=== PATIENT | female | born 1945 | race Caucasian/White ===

== ENCOUNTER 2019-06-19 10:18 | Outpatient (CLI) | payer MEDICARE ==
--- NOTE | 2019-06-19 11:15 | ULT ---
Exam: Pelvic ultrasound HISTORY: Pain. Urinary urgency. Complete hysterectomy TECHNIQUE: Transabdominal imaging of the pelvis is performed FINDINGS: No solid masses or free fluid in the pelvis. Visualized urinary bladder has a normal appearance. Sono grapher reports bilateral ureteral jets are visualized IMPRESSION: Unremarkable ultrasound of the pelvis. No acute abnormality.
--- NOTE | 2019-06-19 14:10 | ULT ---
ULTRASOUND ABDOMEN: 06/19/19 HISTORY: Urination urgency and abdominal pain. FINDINGS: The liver, spleen, gallbladder, and visualized portions of the pancreas, aorta and IVC appear normal. The common duct measures 5 mm in diameter. A prominent left renal pelvis is present. No hydronephros is seen on either side. Echogenic foci in the right kidney measuring up to 8 mm in length are present . Nonobstructing calculi. No free fluid is seen. IMPRESSION: 1. No evidence of cholelithiasis. 2. Probable nonobstructing right renal calculi. POS: [facility]
== END 2019-06-19 10:19 | disposition home or self-care (01) ==
LOC: SCSULT 10:18
PROVIDERS: ATTEND Family Medicine
DX: R39.15 Urgency of urination (principal); R10.2 Pelvic and perineal pain
CPT/HCPCS: 76856; 93975

== ENCOUNTER 2019-06-19 13:21 | Outpatient (CLI) | payer MEDICARE ==
--- NOTE | 2019-06-19 15:27 | BD ---
DEXA BONE DENSITY STUDY: Date: 06/19/2019 PROVIDED CLINICAL HISTORY: : Osteoporosis. FINDINGS: Lumbar Spine: BMD (g/cm2) L1 0.960 T-Score: -0.3 L2 1.141 T-Score: 1.0 L3 1.272 T-Score: 1.7 L4 1.509 T-Score: 4.1 Total 1.219 T-Score: 1.6 Left Femoral Neck: 0.640 T-Score: -1.9 Total Femur: 0.814 T-Score: -1.1 10 YEAR FRACTURE RISK: Major osteoporotic fracture: 12% Hip fracture: 2.3% Lumbar spine values are likely falsely elevated due to degenerative sclerosis. IMPRESSION: Calculated bone mineral density in the left femoral neck meets WHO criteria for osteopenia and places the patient at increased risk for fracture. POS: [facility]
== END 2019-06-19 13:22 | disposition home or self-care (01) ==
LOC: BICMAMMO 13:21
PROVIDERS: ATTEND Family Medicine
DX: Z13.820 Encounter for screening for osteoporosis (principal); M85.852 Other specified disorders of bone density and structure, left thigh
CPT/HCPCS: 77080

== ENCOUNTER 2019-07-23 14:50 | Outpatient (CLI) | payer MEDICARE ==
--- NOTE | 2019-07-28 16:06 | MMO ---
Bilateral MAMMO Bilat Screen [facility]. CLINICAL HISTORY: Patient is 74 years old and is seen for screening. The patient has no family history of breast cancer. The patient has no personal history of cancer. VIEWS: The views performed were: bilateral craniocaudal with tomosynthesis and bilateral mediolateral oblique with tomosynthesis. FILMS COMPARED: The present examination has been compared to prior imaging studies performed at This study has been interpreted with the assistance of computer-aided detection. MAMMOGRAM FINDINGS: There are scattered fibroglandular densities. There are stable benign appearing calcifications seen in both breasts. There are also vascular calcifications. There are no suspicious masses, suspicious calcifications, or new areas of architectural distortion. IMPRESSION: THERE IS NO MAMMOGRAPHIC EVIDENCE OF MALIGNANCY. A ROUTINE FOLLOW-UP MAMMOGRAM IN 1 YEAR IS RECOMMENDED. THE RESULTS OF THIS EXAM WERE SENT TO THE PATIENT. ACR BI-RADS Category 2 - Benign finding MAMMOGRAPHY NOTE: 1. A negative mammogram report should not delay a biopsy if a dominant of clinically suspicious mass is present. 2. Approximately 10% to 15% of breast cancers are not detected by mammography. 3. Adenosis and dense breasts may obscure an underlying neoplasm. Reported by: PACO POOL MD Electonically Signed: [id number]
== END 2019-07-23 14:51 | disposition home or self-care (01) ==
LOC: BICMAMMO 14:50
PROVIDERS: ATTEND Family Medicine
DX: Z12.31 Encounter for screening mammogram for malignant neoplasm of breast (principal)
CPT/HCPCS: 77063; 77067

== ENCOUNTER 2020-03-09 08:44 | Outpatient (CLI) | payer MEDICARE ==
--- NOTE | 2020-03-09 09:52 | ULT ---
Renal ultrasound: 03/09/2020 COMPARISON: 06/19/2019 History: Recurrent urinary tract infections TECHNIQUE: Multiplanar grayscale sonographic imaging of the kidneys and urinary bladder obtained. FINDINGS: Right kidney measures 9.8 x 4.4 x 4.3 cm with a cortical thickness of approximately 1.3 cm. No right renal mass or hydronephrosis. There is a 5-6 mm echogenic focus within the midpole of the right kidney which may represent a small stone. The left kidney measures 11.75 5.7 x 6.0 cm and demonstrates no evidence for stone, hydronephrosis, o r mass. The prevoid urinary bladder volume is 88 cc and the postvoid urinary bladder volume is 104 cc. IMPRESSION: Renal ultrasound as above.
== END 2020-03-09 08:45 | disposition home or self-care (01) ==
LOC: BICULT 08:44
PROVIDERS: ATTEND Urology
DX: N39.0 Urinary tract infection, site not specified (principal)
CPT/HCPCS: 76770

== ENCOUNTER 2020-04-22 15:02 | Outpatient (CLI) | payer MEDICARE | END 2020-04-22 15:03 | disposition home or self-care (01) | LOC: BICCT 15:02 | PROVIDERS: ATTEND Urology | DX: N39.0 Urinary tract infection, site not specified (principal); N20.0 Calculus of kidney; K57.30 Diverticulosis of large intestine without perforation or abscess without bleeding | CPT/HCPCS: 74176; 82565 ==

== ENCOUNTER 2020-07-14 07:21 | Observation (INO) | payer MEDICARE ==
[2020-07-14 07:59] LABS: #Basophils 0.1 thou/uL (0.0-0.2); #Eosinphils 0.2 thou/uL (0.0-0.7); #Lymphocytes 1.8 thou/uL (1.20-3.40); #Monocytes 1.5 thou/uL (0.11-0.59); #Neutrophils 12.2 thou/uL (1.40-6.50); %Basophils 0.6 % (0.0-1.0); %Eosinophils 1.2 % (0.0-10.0); %Lymphocytes 11.4 % (21.0-51.0); %Monocytes 9.6 % (0.0-10.0); %Neutrophils 77.1 % (42.0-75.0); Hemoglobin 13.6 g/dL (12.0-16.0); Mean Corpuscular HGB CONC 33.3 g/dL (32.0-36.0); Mean Corpuscular Hemoglobin 31.8 pg (27.0-31.0); Mean Corpuscular Volume 95.5 fL (78.0-98.0); Mean Platelet Volume 8.3 fL (7.4-10.4); Platelet Count 256 thou/uL (130-400); RBC Distribution Width 11.8 % (11.5-14.5); Red Blood Cell (RBC) Count 4.28 mill/uL (4.20-5.40); White Blood Cell (WBC) Count 15.8 thou/uL (4.8-10.8)
[2020-07-14] MEDS ORDERED: Ondansetron PF 4 MG/2 ML Vial ONE ×2 (08:05→18:39)
[2020-07-14] MEDS ORDERED: cefTRIAXone\\ROCEPHIN 1 GM VIAL ONE (08:05)
[2020-07-14] MEDS ORDERED: Morphine 2 MG/ML VIAL ONE (08:05)
[2020-07-14 08:19] LABS: Anion Gap 13 mmol/L (10-20); BUN (Urea Nitrogen) 12 mg/dL (9.8-20.1); Calc. Creatinine Clearance 0 mL/min (70-130); Calcium 9.1 mg/dL (7.8-10.44); Carbon Dioxide 26 mmol/L (23-31); Chloride 105 mmol/L (98-107); Glucose 164 mg/dL (83-110); Sodium 141 mmol/L (136-145)
[2020-07-14 08:41] LABS: Bacteria/HPF 4+ HPF (None Seen); Bilirubin Negative (Negative); Blood, Urine 2+ (Negative); Clarity Turbid (Clear); Glucose, Urine (Dipstick) Normal (Negative); Ketone, Urine 20 mg/dL (Negative); Leukocyte 500 Leu/uL (Negative); Nitrite Negative (Negative); Protein, Urine (Dipstick) 50 mg/dL (Neg-Trace); RBC/HPF 21-50 HPF (0-3); Specific Gravity, Urine 1.014 (1.002-1.036); Squamous Epithelial 0-3 HPF (0-3); Urobilinogen Normal mg/dL (Less than 2); WBC/HPF Greater than 50 HPF (0-3)
[2020-07-14 09:02] LABS: ALT (SGPT) 16 U/L (8-55); AST (SGOT) 13 U/L (5-34); Albumin 3.5 g/dL (3.4-4.8); Alkaline Phosphatase 86 U/L (40-110); Anion Gap 13 mmol/L (10-20); BUN (Urea Nitrogen) 12 mg/dL (9.8-20.1); Calc. Creatinine Clearance 0 mL/min (70-130); Calcium 8.5 mg/dL (7.8-10.44); Carbon Dioxide 24 mmol/L (23-31); Chloride 106 mmol/L (98-107); Globulin 2.6 g/dL (2.4-3.5); Glucose 152 mg/dL (83-110); Lipase Less than 4 U/L (8-78); Protein, Total 6.1 g/dL (5.8-8.1); Sodium 140 mmol/L (136-145)
[2020-07-14 09:06] LABS: Potassium 2.8 mmol/L (3.5-5.1)
[2020-07-14] MEDS ORDERED: Morphine 2 MG/ML VIAL SLOW IVP PRN (10:42)
[2020-07-14] MEDS ORDERED: Electrolyte Replacement Protocol 1 EACH FS PRN (10:45)
[2020-07-14 11:32] LABS: SARS-CoV-2 NAA Rapid Test Not Detected (NotDetected)
[2020-07-14] MEDS ORDERED: Cefepime 2 GM in Sodium Chloride 0.9% 100 ML IVPB SCH (12:00)
[2020-07-14] MEDS: Sodium Chloride 0.9% 1,000 ML IV SCH (17:07)
[2020-07-14 17:17] LABS: Potassium 2.8 mmol/L (3.5-5.1)
[2020-07-14] MEDS ORDERED: Iothalamate Meglumine 60% 50 ML VIAL FS ONE (17:55)
[2020-07-14] MEDS ORDERED: Fentanyl 100 MCG/2 ML VIAL ONE (18:32)
[2020-07-14] MEDS ORDERED: Dexamethasone 20 MG/5 ML VIAL ONE (18:39)
[2020-07-14] MEDS ORDERED: PROPOFOL 200 MG/20 ML VIAL ONE (18:39)
[2020-07-14] MEDS ORDERED: Lidocaine 1% PF 5 ML VIAL ONE (18:39)
[2020-07-14] MEDS: Cefepime 2 GM in Sodium Chloride 0.9% 100 ML IVPB SCH (20:46)
[2020-07-14 21:20] VITALS: BMI 27.2
[2020-07-15] MEDS: Potassium Chloride 40 MEQ in Sodium Chloride 0.9% 250 ML 250 ML IVPB SCH ×2 (00:45→07:05)
[2020-07-15] MEDS: Sodium Chloride 0.9% 1,000 ML IV SCH (00:51)
[2020-07-15 04:32] LABS: #Monocytes 0.2 thou/uL (0.11-0.59); #Neutrophils 6.7 thou/uL (1.40-6.50); %Basophils 0.2 % (0.0-1.0); %Eosinophils 0.1 % (0.0-10.0); %Lymphocytes 12.9 % (21.0-51.0); %Monocytes 2.2 % (0.0-10.0); %Neutrophils 84.6 % (42.0-75.0); Hemoglobin 12.2 g/dL (12.0-16.0); Mean Corpuscular HGB CONC 33.2 g/dL (32.0-36.0); Mean Corpuscular Hemoglobin 31.9 pg (27.0-31.0); Mean Corpuscular Volume 95.9 fL (78.0-98.0); Mean Platelet Volume 8.4 fL (7.4-10.4); Platelet Count 257 thou/uL (130-400); RBC Distribution Width 11.9 % (11.5-14.5); Red Blood Cell (RBC) Count 3.83 mill/uL (4.20-5.40); White Blood Cell (WBC) Count 7.9 thou/uL (4.8-10.8)
[2020-07-15 05:02] LABS: Anion Gap 12 mmol/L (10-20); BUN (Urea Nitrogen) 16 mg/dL (9.8-20.1); Calc. Creatinine Clearance 75 mL/min (70-130); Calcium 8.9 mg/dL (7.8-10.44); Carbon Dioxide 28 mmol/L (23-31); Chloride 109 mmol/L (98-107); Glucose 223 mg/dL (83-110); Magnesium 1.8 mg/dL (1.6-2.6); Potassium 3.7 mmol/L (3.5-5.1); Sodium 145 mmol/L (136-145)
[2020-07-15] MEDS: Cefepime 2 GM in Sodium Chloride 0.9% 100 ML IVPB SCH (06:08)
[2020-07-15] MEDS ORDERED: Magnesium 2 GM/50 ML 2 GM in Premix Bag 1 BAG IVPB SCH (08:15)
[2020-07-15 08:48] VITALS: BP 144/65; TEMP 97.4
[2020-07-15] MEDS ORDERED: Enoxaparin Sodium 40 MG/0.4 ML SYRINGE SC SCH (09:00)
[2020-07-15 09:44] LABS: Hemoglobin A1c 5.4 % (4.0-6.0)
== END 2020-07-15 13:36 | disposition home or self-care (01) ==
LOC: ERS 07:21 → ERHOLD 10:01 → ONC 14:11
PROVIDERS: ADMIT Internal Medicine; ATTEND Internal Medicine
PROC: 0T778DZ Dilation of Left Ureter with Intraluminal Device, Via Natural or Artificial Opening Endoscopic (ICD-10-PCS; principal; 2020-07-14)
DX: N13.6 Pyonephrosis (principal); B96.20 Unspecified Escherichia coli [E. coli] as the cause of diseases classified elsewhere; E87.6 Hypokalemia; K57.30 Diverticulosis of large intestine without perforation or abscess without bleeding; M85.80 Other specified disorders of bone density and structure, unspecified site; E78.5 Hyperlipidemia, unspecified; E78.00 Pure hypercholesterolemia, unspecified; Z86.16 Personal history of COVID-19; Z79.82 Long term (current) use of aspirin; Z79.899 Other long term (current) drug therapy; Z88.1 Allergy status to other antibiotic agents; Z88.6 Allergy status to analgesic agent; Z88.8 Allergy status to other drugs, medicaments and biological substances; Z20.822 Contact with and (suspected) exposure to COVID-19
CPT/HCPCS: 0240U; 52332; 74176; 74420; 80048 ×2; 80053; 83036; 83605; 83690; 83735; 84132; 85025 ×2; 87040; 87077; 87086; 87149 ×2; 87186; 96365; 96375; 99285; J2270; Q9961; 36415; 81003; 81015; 96372; 96376; C2617; G0378; J0692; J0696; J1100; J1650; J2405; J2704; J3010; J3480; J3490; J7050

== ENCOUNTER 2020-07-25 10:05 | Outpatient (CLI) | payer MEDICARE | END 2020-07-25 10:06 | disposition home or self-care (01) | LOC: BICMAMMO 10:05 | PROVIDERS: ATTEND Family Medicine | DX: Z12.31 Encounter for screening mammogram for malignant neoplasm of breast (principal) | CPT/HCPCS: 77063; 77067 ==

== ENCOUNTER 2020-08-08 12:05 | Outpatient (CLI) | payer MEDICARE ==
[2020-08-08 14:07] LABS: Hemoglobin 14.1 g/dL (12.0-15.5); Mean Corpuscular HGB CONC 32.4 g/dL (32.0-36.0); Mean Corpuscular Hemoglobin 30.3 pg (27.0-33.0); Mean Corpuscular Volume 93.3 fl (81.6-98.3); Mean Platelet Volume 10.8 fl (7.4-10.4); Platelet Count 268 10x3/uL (150-450); RBC Distribution Width 12.9 % (11.5-14.5); Red Blood Cell (RBC) Count 4.66 10x6/uL (3.90-5.03); White Blood Cell (WBC) Count 7.6 10x3/uL (3.5-10.5)
[2020-08-08 14:08] LABS: INR-International Normal Ratio 0.9; PTT 24.5 sec (22.0-33.0); Prothrombin Time 10.5 sec (9.5-12.1)
[2020-08-08 16:01] LABS: Anion Gap 11 mmol/L (10-20); BUN (Urea Nitrogen) 14 mg/dL (9.8-20.1); Calc. Creatinine Clearance 0 mL/min (70-130); Carbon Dioxide 29 mmol/L (23-31); Chloride 106 mmol/L (98-107); Glucose 96 mg/dL (83-110); Potassium 4.2 mmol/L (3.5-5.1); Sodium 142 mmol/L (136-145)
[2020-08-08 16:03] LABS: Bilirubin Neg (Negative); Blood, Urine 250 (Negative); Clarity Clear (Clear); Glucose, Urine (Dipstick) Normal (Negative); Ketone, Urine Negative (Negative); Leukocyte 500 (Negative); Nitrite Negative (Negative); Protein, Urine (Dipstick) 100 mg/dl (Neg-Trace); Specific Gravity, Urine 1.015 (1.002-1.036); Urobilinogen Normal mg/dL (Less than 2); pH, Urine 6.5 (5.0-9.0)
[2020-08-08 16:58] LABS: Squamous Epithelial 0-3 HPF (0-3); WBC/HPF 0-3 HPF (0-3)
== END 2020-08-08 12:06 | disposition home or self-care (01) ==
LOC: LABBT 12:05
PROVIDERS: ATTEND Urology
DX: Z01.818 Encounter for other preprocedural examination (principal); N20.0 Calculus of kidney; N39.0 Urinary tract infection, site not specified
CPT/HCPCS: 80048; 81001; 85027; 85610; 85730; 87077; 87086; 93005; 93010

== ENCOUNTER 2020-08-11 05:41 | Day surgery (SDC) | payer MEDICARE ==
[2020-08-10 10:15] VITALS: BMI 26.8
[2020-08-11] MEDS ORDERED: Sodium Chloride 0.9% 100 ML ONE (06:01)
[2020-08-11] MEDS ORDERED: cefTRIAXone\\ROCEPHIN 1 GM VIAL ONE (06:01)
[2020-08-11] MEDS ORDERED: B & O ONE (07:24)
[2020-08-11] MEDS ORDERED: Iothalamate Meglumine 60% 50 ML VIAL FS ONE (07:24)
[2020-08-11] MEDS ORDERED: Fentanyl 100 MCG/2 ML VIAL ONE (07:34)
[2020-08-11] MEDS ORDERED: ePHEDrine Sulfate 50 MG/10 ML VIAL ONE (07:37)
[2020-08-11] MEDS ORDERED: PROPOFOL 200 MG/20 ML VIAL ONE (07:37)
[2020-08-11] MEDS ORDERED: Ondansetron PF 4 MG/2 ML Vial ONE (07:37)
[2020-08-11] MEDS ORDERED: Dexamethasone 20 MG/5 ML VIAL ONE (07:37)
[2020-08-11] MEDS ORDERED: hydrALAZINE 20 MG/ML VIAL ONE (09:12)
== END 2020-08-11 10:30 | disposition home or self-care (01) ==
LOC: SDC 05:41
PROVIDERS: ATTEND Urology
PROC: 0TC78ZZ Extirpation of Matter from Left Ureter, Via Natural or Artificial Opening Endoscopic (ICD-10-PCS; principal; 2020-08-11)
PROC: 0TC38ZZ Extirpation of Matter from Right Kidney Pelvis, Via Natural or Artificial Opening Endoscopic (ICD-10-PCS; 2020-08-11)
PROC: 0T788DZ Dilation of Bilateral Ureters with Intraluminal Device, Via Natural or Artificial Opening Endoscopic (ICD-10-PCS; 2020-08-11)
DX: N20.2 Calculus of kidney with calculus of ureter (principal); Z87.440 Personal history of urinary (tract) infections; Z79.82 Long term (current) use of aspirin; Z79.899 Other long term (current) drug therapy; Z88.1 Allergy status to other antibiotic agents; Z88.6 Allergy status to analgesic agent; Z88.8 Allergy status to other drugs, medicaments and biological substances
CPT/HCPCS: 52332; 52352; 52356; 74420; 82365; 88300; Q9961; C2617; J0360; J0696; J1100; J2405; J2704; J3010; J3490

== ENCOUNTER 2021-02-02 13:58 | Outpatient (CLI) | payer MEDICARE | END 2021-02-02 13:59 | disposition home or self-care (01) | LOC: BICULT 13:58 | PROVIDERS: ATTEND Urology | DX: N13.30 Unspecified hydronephrosis (principal) | CPT/HCPCS: 76770 ==

== ENCOUNTER 2021-07-26 09:52 | Outpatient (CLI) | payer MEDICARE | END 2021-07-26 09:53 | disposition home or self-care (01) | LOC: BICMAMMO 09:52 | PROVIDERS: ATTEND Family Medicine | DX: Z12.31 Encounter for screening mammogram for malignant neoplasm of breast (principal); Z13.820 Encounter for screening for osteoporosis; M85.851 Other specified disorders of bone density and structure, right thigh; M85.852 Other specified disorders of bone density and structure, left thigh; Z80.3 Family history of malignant neoplasm of breast | CPT/HCPCS: 77063; 77067; 77080 ==

== ENCOUNTER 2022-09-08 11:36 | Emergency (ER) | payer MEDICARE ==
[2022-09-08] MEDS ORDERED: Iopamidol-370 76% 500 ML MDV (1 ML CHARGE) ONE (11:49)
[2022-09-08] MEDS ORDERED: predniSONE 20 MG TAB ONE (12:08)
[2022-09-08] MEDS ORDERED: Albuterol 2.5 MG/0.5 ML NEB ONE (12:08)
[2022-09-08] MEDS ORDERED: Ipratropium Bromide 2.5 ml Neb ONE (12:08)
[2022-09-08 12:36] LABS: #Basophils 0.1 thou/uL (0.0-0.2); #Eosinphils 0.3 thou/uL (0.0-0.7); #Monocytes 1.3 thou/uL (0.11-0.59); #Neutrophils 5.9 thou/uL (1.40-6.50); %Basophils 0.6 % (0.0-1.0); %Lymphocytes 29.7 % (21.0-51.0); %Monocytes 12.2 % (0.0-10.0); %Neutrophils 54.2 % (42.0-75.0); Hemoglobin 14.6 g/dL (12.0-16.0); Mean Corpuscular HGB CONC 34.1 g/dL (32.0-36.0); Mean Corpuscular Hemoglobin 32.1 pg (27.0-31.0); Mean Corpuscular Volume 94.1 fl (78.0-98.0); Mean Platelet Volume 10.4 fL (7.4-10.4); Platelet Count 227 10x3/uL (130-400); RBC Distribution Width 12.9 % (11.5-14.5); Red Blood Cell (RBC) Count 4.55 mill/uL (4.20-5.40)
[2022-09-08 13:06] LABS: ALT (SGPT) 20 U/L (8-55); AST (SGOT) 18 U/L (5-34); Albumin 4.3 g/dL (3.4-4.8); Alkaline Phosphatase 83 U/L (40-110); Anion Gap 12 mmol/L (10-20); BUN (Urea Nitrogen) 9 mg/dL (9.8-20.1); Bilirubin, Total 0.7 mg/dL (0.2-1.2); Calc. Creatinine Clearance 0 mL/min (70-130); Calcium 9.2 mg/dL (7.8-10.44); Carbon Dioxide 27 mmol/L (23-31); Chloride 105 mmol/L (98-107); Estimated GFR 89; Globulin 2.3 g/dL (2.4-3.5); Glucose 108 mg/dL (83-110); Lipase 8 U/L (8-78); Potassium 3.6 mmol/L (3.5-5.1); Protein, Total 6.6 g/dL (5.8-8.1); Sodium 140 mmol/L (136-145)
[2022-09-08 13:44] LABS: SARS-CoV-2 NAA Rapid Test DETECTED (NotDetected)
== END 2022-09-08 14:40 | disposition home or self-care (01) ==
LOC: ERS 11:36
DX: U07.1 COVID-19 (principal); E78.5 Hyperlipidemia, unspecified; Z79.82 Long term (current) use of aspirin; Z79.899 Other long term (current) drug therapy
CPT/HCPCS: 0240U; 71046; 71275; 80053; 83690; 83880; 84484; 85025; 93005; 94760; 36415; J7512; J7611; Q9967

== ENCOUNTER 2023-03-18 08:34 | Outpatient (CLI) | payer MEDICARE | END 2023-03-18 08:35 | disposition home or self-care (01) | LOC: BICMAMMO 08:34 | PROVIDERS: ATTEND Internal Medicine Endocrinology, Diabetes & Metabolism | DX: Z13.820 Encounter for screening for osteoporosis (principal); E21.2 Other hyperparathyroidism; M85.851 Other specified disorders of bone density and structure, right thigh; M85.852 Other specified disorders of bone density and structure, left thigh | CPT/HCPCS: 77080 ==

== ENCOUNTER 2023-08-08 12:10 | Outpatient (CLI) | payer MEDICARE | END 2023-08-08 12:11 | disposition home or self-care (01) | LOC: BICMAMMO 12:10 | PROVIDERS: ATTEND Family Medicine | DX: Z12.31 Encounter for screening mammogram for malignant neoplasm of breast (principal); Z80.3 Family history of malignant neoplasm of breast | CPT/HCPCS: 77063; 77067 ==

== ENCOUNTER 2024-09-09 03:08 | Emergency (ER) | payer MEDICARE ==
[2024-09-09 05:50] LABS: ALT (SGPT) 25 U/L (Less than 34); AST (SGOT) 26 U/L (11-34); Albumin 3.4 g/dL (3.1-4.5); Alkaline Phosphatase 75 U/L (40-110); Anion Gap 12 mmol/L (10-20); BUN (Urea Nitrogen) 18 mg/dL (9.8-20.1); Bilirubin, Total 0.5 mg/dL (0.3-1.2); Calc. Creatinine Clearance 0 mL/min (70-130); Calcium 8.8 mg/dL (7.8-10.44); Carbon Dioxide 27 mmol/L (23-31); Chloride 109 mmol/L (98-107); Globulin 2.3 g/dL (2.4-3.5); Glucose 134 mg/dL (83-110); INR-International Normal Ratio 1.1; PTT 27.1 sec (22.9-36.1); Potassium 3.6 mmol/L (3.5-5.1); Prothrombin Time 13.9 sec (12.0-14.7); Sodium 144 mmol/L (136-145)
[2024-09-09 08:35] LABS: #Basophils 0.04 10x3/uL (0.0-0.2); #Eosinophils 0.56 10x3/uL (0.0-0.7); #Monocytes 0.86 10x3/uL (0.11-0.59); #Neutrophils 7.77 10x3/uL (1.40-6.50); %Basophils 0.4 % (0.0-1.0); %Eosinophils 5.0 % (0.0-10.0); %Lymphocytes 17.6 % (21.0-51.0); %Monocytes 7.7 % (0.0-10.0); %Neutrophils 69.0 % (42.0-75.0); Hematocrit 36.7 % (36.0-47.0); Hemoglobin 12.0 g/dL (12.0-16.0); Mean Corpuscular Hemoglobin 32.0 pg (27.0-31.0); Mean Corpuscular Volume 97.9 fL (78.0-98.0); Platelet Count 218 10x3/uL (130-400); Red Blood Cell (RBC) Count 3.75 mill/uL (4.20-5.40); White Blood Cell (WBC) Count 11.24 10x3/uL (4.8-10.8)
[2024-09-09] MEDS ORDERED: Iopamidol-370 76% 500 ML MDV (1 ML CHARGE) ONE (11:10)
== END 2024-09-09 07:25 | disposition home or self-care (01) ==
LOC: ERS 03:08
DX: K62.5 Hemorrhage of anus and rectum (principal); K57.90 Diverticulosis of intestine, part unspecified, without perforation or abscess without bleeding
CPT/HCPCS: 74174; 80053; 85025; 85610; 85730; 86850; 86900; 86901; 99284

== ENCOUNTER 2024-09-16 02:58 | Inpatient (IN) | payer MEDICARE ==
[2024-09-16] MEDS ORDERED: Pantoprazole 40 MG VIAL ONE (03:50)
[2024-09-16 04:06] LABS: #Basophils Less than 0.03 10x3/uL (0.0-0.2); #Eosinophils 0.46 10x3/uL (0.0-0.7); #Monocytes 0.53 10x3/uL (0.11-0.59); #Neutrophils 3.83 10x3/uL (1.40-6.50); %Basophils 0.2 % (0.0-1.0); %Eosinophils 6.9 % (0.0-10.0); %Lymphocytes 27.1 % (21.0-51.0); %Monocytes 8.0 % (0.0-10.0); %Neutrophils 57.5 % (42.0-75.0); Hematocrit 26.9 % (36.0-47.0); Hemoglobin 8.6 g/dL (12.0-16.0); Mean Corpuscular Hemoglobin 31.3 pg (27.0-31.0); Mean Corpuscular Volume 97.8 fL (78.0-98.0); Platelet Count 235 10x3/uL (130-400); Red Blood Cell (RBC) Count 2.75 mill/uL (4.20-5.40); White Blood Cell (WBC) Count 6.65 10x3/uL (4.8-10.8)
[2024-09-16 04:23] LABS: ALT (SGPT) 14 U/L (Less than 34); AST (SGOT) 15 U/L (11-34); Albumin 3.2 g/dL (3.1-4.5); Alkaline Phosphatase 50 U/L (40-110); Anion Gap 9 mmol/L (10-20); BUN (Urea Nitrogen) 9 mg/dL (9.8-20.1); Bilirubin, Total 0.4 mg/dL (0.3-1.2); Calc. Creatinine Clearance 0 mL/min (70-130); Calcium 8.4 mg/dL (7.8-10.44); Carbon Dioxide 25 mmol/L (23-31); Chloride 112 mmol/L (98-107); Globulin 2.0 g/dL (2.4-3.5); Glucose 144 mg/dL (83-110); Lipase 16 U/L (8-78); Potassium 3.0 mmol/L (3.5-5.1); Sodium 143 mmol/L (136-145)
[2024-09-16] MEDS ORDERED: Calcium Carbonate 500 MG ChewTAB PO PRN (05:55)
[2024-09-16] MEDS ORDERED: Ondansetron PF 4 MG/2 ML Vial IVP PRN (05:55)
[2024-09-16] MEDS ORDERED: Acetaminophen 325 MG TAB PO PRN (05:55)
[2024-09-16] MEDS ORDERED: Electrolyte Replacement Protocol 1 EACH FS SCH (06:00)
[2024-09-16 12:54] LABS: Hematocrit 29.4 % (36.0-47.0); Hemoglobin 9.8 g/dL (12.0-16.0)
[2024-09-16] MEDS: Potassium Chloride 20 MEQ in Premix 1 BAG IVPB SCH (13:59)
[2024-09-16] MEDS: GoLYTELY 4,000 ml Bottle PO SCH (18:39)
[2024-09-16 21:36] LABS: Hematocrit 31.4 % (36.0-47.0); Hemoglobin 10.8 g/dL (12.0-16.0); Mean Corpuscular Hemoglobin 32.3 pg (27.0-31.0); Mean Corpuscular Volume 94.0 fL (78.0-98.0); Platelet Count 214 10x3/uL (130-400); Red Blood Cell (RBC) Count 3.34 mill/uL (4.20-5.40); White Blood Cell (WBC) Count 9.49 10x3/uL (4.8-10.8)
[2024-09-17 04:01] LABS: #Basophils 0.03 10x3/uL (0.0-0.2); #Eosinophils 0.46 10x3/uL (0.0-0.7); #Monocytes 0.73 10x3/uL (0.11-0.59); #Neutrophils 4.99 10x3/uL (1.40-6.50); %Basophils 0.3 % (0.0-1.0); %Eosinophils 5.2 % (0.0-10.0); %Lymphocytes 29.5 % (21.0-51.0); %Monocytes 8.3 % (0.0-10.0); %Neutrophils 56.5 % (42.0-75.0); Hematocrit 34.3 % (36.0-47.0); Hemoglobin 11.4 g/dL (12.0-16.0); Mean Corpuscular Hemoglobin 31.3 pg (27.0-31.0); Mean Corpuscular Volume 94.2 fL (78.0-98.0); Platelet Count 256 10x3/uL (130-400); Red Blood Cell (RBC) Count 3.64 mill/uL (4.20-5.40); White Blood Cell (WBC) Count 8.84 10x3/uL (4.8-10.8)
[2024-09-17 04:21] LABS: ALT (SGPT) 14 U/L (Less than 34); AST (SGOT) 18 U/L (11-34); Albumin 3.7 g/dL (3.1-4.5); Alkaline Phosphatase 55 U/L (40-110); Anion Gap 12 mmol/L (10-20); BUN (Urea Nitrogen) 5 mg/dL (9.8-20.1); Bilirubin, Total 1.4 mg/dL (0.3-1.2); Calc. Creatinine Clearance 103 mL/min (70-130); Calcium 8.7 mg/dL (7.8-10.44); Carbon Dioxide 26 mmol/L (23-31); Chloride 107 mmol/L (98-107); Globulin 2.4 g/dL (2.4-3.5); Glucose 112 mg/dL (83-110); Potassium 3.2 mmol/L (3.5-5.1); Sodium 142 mmol/L (136-145)
[2024-09-17] MEDS: Potassium Chloride 20 MEQ in Premix 1 BAG IVPB SCH (07:18)
[2024-09-17] MEDS ORDERED: PROPOFOL 20 ML ONE ×2 (09:01→09:22)
[2024-09-17 15:25] LABS: Hematocrit 30.0 % (36.0-47.0); Hemoglobin 9.9 g/dL (12.0-16.0)
[2024-09-17] MEDS: Famotidine/PF 20 mg/2ml Vial SLOW IVP SCH (20:31)
[2024-09-18 05:17] LABS: Hematocrit 28.0 % (36.0-47.0); Hemoglobin 9.1 g/dL (12.0-16.0)
[2024-09-18 05:46] LABS: Anion Gap 8 mmol/L (10-20); BUN (Urea Nitrogen) 6 mg/dL (9.8-20.1); Calc. Creatinine Clearance 102 mL/min (70-130); Calcium 8.4 mg/dL (7.8-10.44); Carbon Dioxide 26 mmol/L (23-31); Chloride 110 mmol/L (98-107); Glucose 112 mg/dL (83-110); Potassium 3.7 mmol/L (3.5-5.1); Sodium 140 mmol/L (136-145)
[2024-09-18 13:01] LABS: Hematocrit 29.1 % (36.0-47.0); Hemoglobin 9.4 g/dL (12.0-16.0)
[2024-09-18 18:42] LABS: Hematocrit 26.9 % (36.0-47.0); Hemoglobin 8.7 g/dL (12.0-16.0)
[2024-09-19 05:06] LABS: Hematocrit 26.3 % (36.0-47.0); Hemoglobin 8.6 g/dL (12.0-16.0); Mean Corpuscular Hemoglobin 31.6 pg (27.0-31.0); Mean Corpuscular Volume 96.7 fL (78.0-98.0); Platelet Count 200 10x3/uL (130-400); Red Blood Cell (RBC) Count 2.72 mill/uL (4.20-5.40); White Blood Cell (WBC) Count 7.11 10x3/uL (4.8-10.8)
[2024-09-19 05:23] LABS: Anion Gap 8 mmol/L (10-20); BUN (Urea Nitrogen) 8 mg/dL (9.8-20.1); Calc. Creatinine Clearance 99 mL/min (70-130); Calcium 8.3 mg/dL (7.8-10.44); Carbon Dioxide 25 mmol/L (23-31); Chloride 108 mmol/L (98-107); Glucose 111 mg/dL (83-110); Potassium 3.4 mmol/L (3.5-5.1); Sodium 138 mmol/L (136-145)
[2024-09-19 06:56] VITALS: BMI 25.0
[2024-09-19] MEDS: Potassium Chloride 20 MEQ in Premix 1 BAG IVPB SCH (08:40)
[2024-09-19] MEDS: Potassium Bicarbonate/Cit Ac 20 MEQ TAB PO SCH (12:11)
[2024-09-20 04:47] LABS: Hematocrit 26.2 % (36.0-47.0); Hemoglobin 8.5 g/dL (12.0-16.0); Mean Corpuscular Hemoglobin 32.2 pg (27.0-31.0); Mean Corpuscular Volume 99.2 fL (78.0-98.0); Platelet Count 234 10x3/uL (130-400); Red Blood Cell (RBC) Count 2.64 mill/uL (4.20-5.40); White Blood Cell (WBC) Count 7.50 10x3/uL (4.8-10.8)
[2024-09-20 04:57] LABS: Anion Gap 10 mmol/L (10-20); BUN (Urea Nitrogen) 8 mg/dL (9.8-20.1); Calc. Creatinine Clearance 87 mL/min (70-130); Calcium 8.7 mg/dL (7.8-10.44); Carbon Dioxide 27 mmol/L (23-31); Chloride 112 mmol/L (98-107); Glucose 115 mg/dL (83-110); Potassium 4.4 mmol/L (3.5-5.1); Sodium 145 mmol/L (136-145)
[2024-09-20 08:58] VITALS: TEMP 97.8
[2024-09-20 12:24] VITALS: BP 130/74
== END 2024-09-20 12:55 | disposition home or self-care (01) | DRG 378 ==
LOC: ERS 02:58 → ERHOLD 05:31 → IMCU/EMU 08:07 → T4-B 09-17 11:33 → IMCU/EMU 09-17 16:24 → MSONC 09-19 13:53
PROVIDERS: ADMIT Student in an Organized Health Care Education/Training Program; ATTEND Family Medicine
PROC: 0DJ08ZZ Inspection of Upper Intestinal Tract, Via Natural or Artificial Opening Endoscopic (ICD-10-PCS; principal; 2024-09-17)
PROC: 0DJD8ZZ Inspection of Lower Intestinal Tract, Via Natural or Artificial Opening Endoscopic (ICD-10-PCS; 2024-09-17)
PROC: 30233N1 Transfusion of Nonautologous Red Blood Cells into Peripheral Vein, Percutaneous Approach (ICD-10-PCS; 2024-09-17)
DX: K57.31 Diverticulosis of large intestine without perforation or abscess with bleeding (principal); D62 Acute posthemorrhagic anemia; I10 Essential (primary) hypertension; E78.5 Hyperlipidemia, unspecified; E87.6 Hypokalemia; Z88.8 Allergy status to other drugs, medicaments and biological substances; Z79.899 Other long term (current) drug therapy
CPT/HCPCS: 36415; 36430; 78278; 80048; 80053; 83690; 85014; 85018; 85025; 85027; 86850; 86900; 86901; 96374; A9560; J1308; J1644; J2470; J2704; J3480; J7120; P9016